=== PATIENT | male | born 1960 | race American Indian/Alaskan Native ===

== ENCOUNTER 2016-12-07 13:38 | Outpatient (CLI) | payer OTHER ==
[2016-12-07] MEDS ORDERED: PROVENTIL IH ONE (13:52)
== END 2016-12-07 13:39 | disposition home or self-care (01) ==
LOC: PF 13:38
PROVIDERS: ATTEND Internal Medicine
DX: J44.9 Chronic obstructive pulmonary disease, unspecified (principal); J98.4 Other disorders of lung; G47.30 Sleep apnea, unspecified
CPT/HCPCS: 94060; 94640